=== PATIENT | male | born 1950 | race Caucasian/White ===

== ENCOUNTER → 2021-04-21 | Outpatient (CLI) | payer OTHER | LOC: LAB 12:58 | PROVIDERS: ATTEND Student in an Organized Health Care Education/Training Program | DX: Z01.812 Encounter for preprocedural laboratory examination (principal); Z20.822 Contact with and (suspected) exposure to COVID-19 ==

== ENCOUNTER → 2021-04-22 | Day surgery (SDC) | payer OTHER ==
[~2021-04-22] VITALS: Ht 167.6 cm; Wt 73.5 kg
[2021-04-22 06:59] VITALS: BP 139/83
--- NOTE | 2021-04-26 06:16 | O ---
[facility] [place] [address] OPERATIVE REPORT Name: KURT JORGENSEN Room #: REG [facility] [place] M..#: [id number] Admission: 04/22/21 Attend Phys: Kurt Belle MD Discharge: Date of : 52 Report #: [id number] THIS REPORT FOR: cc: Derick Moreno,Kurt Weldon MD ~ cc: Chidi Steiner MD, Dr. 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 PROCEDURE: Right upper lid retraction repair by myocutaneous advancement flap. SURGEON: Kurt Belle MD PROFESSOR OF SURGERY: None. ANESTHESIA: MAC. COMPLICATIONS: None. INDICATIONS FOR SURGERY: This pleasant 70-year-old gentleman has a notch in his central right upper lid, resulting from prior trauma. 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 He presents today for repair of the right upper lid retraction by myocutaneous advancement flap in order to improve his ocular surface and his quality of vision. Informed consent was obtained to include, but not limited to the potential risk for loss of vision, bleeding, infection, failure to improve the problem, the potential need for further surgery or treatment. DESCRIPTION OF PROCEDURE: The patient was taken to the operating room where 2% Xylocaine with epinephrine mixed with equal parts 0.75% Marcaine with Wydase was administered transcutaneously and transconjunctivally to the right upper lid, the right lateral canthus, and the right infratemporal fossa. The patient was then prepped and draped in the usual sterile fashion. A fine-tip skin marking pen was then utilized to outline the area of the notch with small quantity of normal appearing tissue on each side. The incisions were then made perpendicularly across the eyelid margin and drawn to a point at the arcus marginalis. Hemostasis was achieved in the field with diligent pinpoint monopolar cautery. [address] [address] OPERATIVE REPORT Name: KURT JORGENSEN Room #: REG [facility] [place] M.R.#: [id number] Admission: 04/22/21 Attend Phys: Kurt Belle MD Discharge: Date of : 52 Report #: [id number] A myocutaneous flap was then developed laterally to correct the defect. Hemostasis was then re-achieved with diligent pinpoint monopolar cautery. The flap was then advanced with interrupted buried Vicryl sutures deep. The flap was advanced in such a manner to draw the lid down rather than up. The tarsal plate was then reapproximated with interrupted 6-0 Vicryl sutures. The eyelid margin itself was reapproximated externally with interrupted 7-0 Vicryl sutures. The subcutaneous structures and the skin more superficially were then closed with interrupted buried Vicryl sutures deep and then a final closure of 6-0 plain. The wounds were then cleaned and dressed with erythromycin ophthalmic ointment. The patient subsequently transported to the recovery area having tolerated the procedures well with no anesthetic or operative complications being noted. <ELECTRONICALLY SIGNED> By: Kurt Belle MD 04/26/21 [id number] Kurt Belle MD /nt
== END | disposition home or self-care (01) ==
LOC: OR 06:27
PROVIDERS: ATTEND Ophthalmology
DX: H02.531 Eyelid retraction right upper eyelid (principal); H18.9 Unspecified disorder of cornea; Z98.890 Other specified postprocedural states; Z79.899 Other long term (current) drug therapy
CPT/HCPCS: 50010; 50101; 50386; 50398; 56528; 56531; 62110; 62850; 70005